=== PATIENT | male | born 1980 | race Caucasian/White ===

== ENCOUNTER 2022-11-28 23:09 | Outpatient (CLI) | payer SELFPAY | END 2022-11-28 23:59 | disposition critical access hospital (66) | LOC: EMS 23:09 | DX: R56.9 Unspecified convulsions (principal) | CPT/HCPCS: A0425; A0429 ==

== ENCOUNTER 2022-11-28 23:32 | Emergency (ER) | payer SELFPAY ==
[2022-11-28] MEDS ORDERED: VALPROATE IV STA (23:37)
[2022-11-28] MEDS ORDERED: SODIUM CHLORIDE 0.9% IV STA (23:37)
[2022-11-28 23:51] LABS: BASOPHILS # (AUTO) 0.1 10^3/uL (0.0-0.1); BASOPHILS % (AUTO) 0.7 %; EOSINOPHILS # (AUTO) 0.2 10^3/uL (0.0-0.7); EOSINOPHILS % (AUTO) 2.4 %; HCT - HEMATOCRIT 41.4 % (42.0-52.0); HGB - HEMOGLOBIN 13.3 g/dL (14.0-18.0); LYMPHOCYTES # (AUTO) 2.5 10^3/uL (1.5-3.5); LYMPHOCYTES % (AUTO) 30.9 %; MEAN CORPUSCULAR HEMOGLOBIN 26.9 pg (27.0-31.0); MEAN CORPUSCULAR HGB CONC 32.1 g/dL (32.0-36.0); MEAN CORPUSCULAR VOLUME 83.8 fL (80.0-94.0); MEAN PLATELET VOLUME 9.2 fL (7.4-11.4); MONOCYTES # (AUTO) 0.5 10^3/uL (0.0-1.0); MONOCYTES % (AUTO) 5.7 %; NEUTROPHILS # (AUTO) 4.9 10^3/uL (1.5-6.6); NEUTROPHILS % (AUTO) 60.1 %; PLT - PLATELET COUNT 283 10^3/uL (130-450); RED BLOOD COUNT 4.94 10^6/uL (4.70-6.10); RED CELL DISTRIBUTION WIDTH 14.5 % (12.0-15.0); WHITE BLOOD COUNT 8.2 x10^3/uL (4.8-10.8)
[2022-11-29 00:04] LABS: ALBUMIN 4.1 g/dL (3.2-5.5); ALBUMIN/GLOBULIN RATIO 1.6 (1.0-2.2); ALKALINE PHOSPHATASE 79 IU/L (42-121); ALT ALANINE AMINOTRANSFERASE 19 IU/L (10-60); AST ASPARTATE AMINOTRANSFERASE 22 IU/L (10-42); BILIRUBIN,TOTAL 0.7 mg/dL (0.2-1.0); BUN - BLOOD UREA NITROGEN 19 mg/dL (6-20); CARBON DIOXIDE - CO2 27 mmol/L (21-32); CHLORIDE 101 mmol/L (101-111); CREATININE 1.1 mg/dL (0.6-1.2); ETOH - ETHANOL < 5.0 mg/dL; GFR - MDRD 74 (>89); GLUCOSE 128 mg/dL (70-100); LIPASE 26 U/L (22-51); POTASSIUM 3.7 mmol/L (3.5-5.0); SODIUM 136 mmol/L (135-145); TOTAL PROTEIN 6.6 g/dL (6.7-8.2)
--- NOTE | 2022-11-29 00:47 | ED Physician Documentation ---
History of Present Illness - Stated complaint Stated Complaint: SZ - Chief complaint Chief Complaint: Neuro - Additonal information Additional information: Patient 42-year-old male presenting to the emergency department with report of seizure. Reports was diagnosed with seizure disorder 1 year ago. Primarily lives in [place].Discontinued his Depakote 750 mg twice daily 5 days ago because he had run out of medications. 5 seizure events today. No tongue lacerations or loss of bowel bladder control. Denies fever, head trauma. Review of Systems Constitutional: denies: Fever Eyes: denies: Loss of vision Ears: denies: Loss of hearing Nose: denies: Rhinorrhea / runny nose Throat: denies: Dental pain / toothache Cardiac: denies: Chest pain / pressure Respiratory: denies: Dyspnea GI: denies: Abdominal Pain : denies: Dysuria Skin: denies: Rash Musculoskeletal: denies: Neck pain Neurologic: reports: Seizure. denies: Generalized weakness PD PAST MEDICAL HISTORY - Past Medical History Cardiovascular: None Respiratory: None Neuro: None, Seizure disorder - Present Medications Home Medications: Ambulatory Orders Medication Instructions Recorded Confirmed Divalproex Sodium [Depakote] 500 mg PO BID #90 tab 11/29/22 - Allergies Allergies/Adverse Reactions: Allergies Allergy/AdvReac Type Severity Reaction Status Date / Time Penicillins Allergy Intermediate Hives Verified 11/28/22 23:41 PD ED PE NORMAL - Vitals Vital signs reviewed: Yes - General General: Alert and oriented X 3, No acute distress, Well developed/nourished, Other (Patient smells strongly of marijuana) - HEENT HEENT: Atraumatic, PERRL, Moist mucous membranes, Pharynx benign, Dentition benign, Other (Multiple missing teeth) - Neck Neck: Supple, no meningeal sign, No bony TTP, No adenopathy, Thyroid normal, No JVD, No bruit, C-Spine cleared by NEXUS criteria, Other - Cardiac Cardiac: RRR, No murmur, No gallop, No rub, Strong equal pulses - Respiratory Respiratory: No respiratory distress, Clear bilaterally - Abdomen Abdomen: Normal bowel sounds, Non tender - Male Male : Deferred - Rectal Rectal: Deferred - Back Back: No CVA TTP - Derm Derm: Normal color - Extremities Extremities: No deformity - Neuro Neuro: Alert and oriented X 3, auto hauler 2-12 intact, No motor deficit, No sensory deficit, Normal speech Results - Vitals Vitals: Vital Signs - 24 hr 11/28/22 23:36 Temperature 36.3 C L Heart Rate 82 Respiratory 16 Rate Blood Pressure 128/73 O2 Saturation 100 Oxygen O2 Source Room air - Labs Labs: Laboratory Tests 11/28/22 11/28/22 11/28/22 23:46 23:46 23:46 WBC 8.2 RBC 4.94 Hgb 13.3 L Hct 41.4 L MCV 83.8 MCH 26.9 L MCHC 32.1 RDW 14.5 Plt Count 283 MPV 9.2 Neut # (Auto) 4.9 Lymph # (Auto) 2.5 [place] # (Auto) 0.5 Eos # (Auto) 0.2 Baso # (Auto) 0.1 Absolute Nucleated RBC 0.00 Nucleated RBC % 0.0 Sodium 136 Potassium 3.7 Chloride 101 Carbon Dioxide 27 Anion Gap 8.0 BUN 19 Creatinine 1.1 Estimated GFR (MDRD) 74 L Glucose 128 H Lactic Acid 1.1 Calcium 9.0 Total Bilirubin 0.7 AST 22 ALT 19 Alkaline Phosphatase 79 Total Protein 6.6 L Albumin 4.1 Globulin 2.5 Albumin/Globulin Ratio 1.6 Lipase 26 Ethyl Alcohol < 5.0 PD Medical Decision Making - ED course ED course: Patient 42-year-old male presenting to the emergency department with multiple seizures over the course last 24 hours. He reports known history of seizure disorder. Reports was on Depakote 750 mg twice daily but discontinued this medication 5 days ago as he ran out of pills. Afebrile, hematin stable on arrival to the emergency department. Alert and orientated with no focal or lateralizing neurologic deficits. No nuchal rigidity appreciated. He reported feeling somewhat fatigued but otherwise well. Comprehensive labs are all within normal limits or nonactionable. He was given IV Depakote, 750 mg. We will write him a prescription for same and refer him back to his primary care doctor and neurologist. Departure - Departure Disposition: 01 Home, Self Care Clinical Impression: Seizure Prescriptions: Divalproex Sodium [Depakote] 500 mg PO BID #90 tab Comments: Thank you for allowing us to care for you today at [facility]. Your prescription was sent to [email or web address] in [place]. Your lab work in the emergency department today was reassuring. It is important that you resume your antiseizure medication as soon as possible. I do recommend careful follow-up with primary care/neurology. Please abstain from driving motor vehicles, swimming and unattended swimming pools or other high risk behaviors until cleared by neurology. If it anytime you have new or worsening symptoms please do not hesitate to return.
[2022-11-29 01:08] VITALS: BP 125/73
== END 2022-11-29 01:10 | disposition home or self-care (01) ==
LOC: ED 23:32
DX: G40.909 Epilepsy, unspecified, not intractable, without status epilepticus (principal); T42.6X6A Underdosing of other antiepileptic and sedative-hypnotic drugs, initial encounter
CPT/HCPCS: 36415; 80053; 80320; 83605; 83690; 85025; 96374; 99284